=== PATIENT | male | born 1935 | race Caucasian/White ===

== ENCOUNTER 2021-09-02 10:54 | Inpatient (IN) ==
[2021-09-02] MEDS ORDERED: predniSONE 20 MG TABLET PO ONE (12:22)
[2021-09-02] MEDS ORDERED: Ipratropium/Albuterol Neb 3 ML IH ONE (12:22)
[2021-09-02 12:45] LABS: Basophils % 0.2 %; Eosinophils # 0.2 K/mcL (0.0-0.6); Eosinophils % 1.8 %; Hematocrit 46.2 % (37.5-50.1); Hemoglobin 15.1 g/dL (12.9-16.9); Immature Granulocytes % 0.5 % (0-4); Lymphocytes # 0.6 K/mcL (0.6-4.6); Lymphocytes % 4.5 %; Mean Corpuscular HGB Conc 32.7 g/dL (31.6-35.5); Mean Corpuscular Hemoglobin 30.2 pg (28.0-33.3); Mean Corpuscular Volume 92.4 fL (83.0-100.0); Mean Platelet Volume 8.6 fL (9.4-12.4); Monocytes # 0.9 K/mcL (0.0-1.3); Monocytes % 6.9 %; Neutrophils # 11.3 K/mcL (1.6-8.9); Platelet Count 511 K/mcL (140-400); Red Cell Distribution Width 12.9 % (11.5-14.5); Segmented Neutrophils % 86.1 %; White Blood Count 13.1 K/mcL (4.3-11.1)
[2021-09-02 13:03] LABS: BUN/Creatinine Ratio 27 (6-26); Blood Urea Nitrogen 29 mg/dL (8-23); Calcium 8.8 mg/dL (8.6-10.3); Carbon Dioxide 30 mEq/L (23-29); Chloride 98 mEq/L (98-107); Glucose 117 mg/dL (70-105); Osmolality,Calculated 283 (280-300); Potassium 3.6 mEq/L (3.5-5.1); Sodium 133 mEq/L (136-145); Troponin I < 0.03 ng/mL (< 0.04); eGFR For African Americans > 60 (> 60); eGFR For Non-African Americans > 60 (> 60)
[2021-09-02] MEDS ORDERED: Azithromycin 500 MG in 0.9 % Sodium Chloride 250 ML IVPB ONE (13:43)
[2021-09-02] MEDS ORDERED: cefTRIAXone 1,000 MG in 0.9 % Sodium Chloride Mini Bag 100 ML IVPB ONE (13:43)
[2021-09-02] MEDS ORDERED: Ondansetron 4 MG/2 ML VIAL IVP PRN (14:02)
[2021-09-02] MEDS ORDERED: Naloxone 0.4 MG/ML INJ IVP PRN (14:02)
[2021-09-02] MEDS ORDERED: Acetaminophen 325 MG TABLET PO PRN (14:02)
[2021-09-02] MEDS ORDERED: Ipratropium/Albuterol Neb 3 ML IH PRN (14:04)
[2021-09-02] MEDS ORDERED: Isovue-370 500 ML BOTTLE IVP ONE (14:26)
[2021-09-02] MEDS: Levalbuterol Neb 1.25 MG/3 ML IH SCH ×2 (15:51→21:20)
[2021-09-02] MEDS ORDERED: Ipratropium/Albuterol Neb 3 ML IH SCH (16:00)
[2021-09-02] MEDS: MethylPREDNISolone 40 MG/ML VIAL IVP SCH (17:40)
[2021-09-02] MEDS: Doxycycline 100 MG in 0.9 % Sodium Chloride Mini Bag 100 ML IVPB SCH (17:42)
[2021-09-02] MEDS ORDERED: Cefepime HCl 1,000 MG in 0.9 % Sodium Chloride Mini Bag 100 ML IVPB SCH (18:00)
[2021-09-02] MEDS: lisinopriL 10 MG TABLET PO SCH (20:13)
[2021-09-03] MEDS: Levalbuterol Neb 1.25 MG/3 ML IH SCH ×4 (04:29→20:04)
[2021-09-03 05:20] LABS: Hematocrit 39.6 % (37.5-50.1); Hemoglobin 12.7 g/dL (12.9-16.9); Immature Granulocytes % 0.8 % (0-4); Lymphocytes # 0.3 K/mcL (0.6-4.6); Mean Corpuscular HGB Conc 32.1 g/dL (31.6-35.5); Mean Corpuscular Hemoglobin 29.5 pg (28.0-33.3); Mean Corpuscular Volume 92.1 fL (83.0-100.0); Mean Platelet Volume 8.5 fL (9.4-12.4); Monocytes # 0.3 K/mcL (0.0-1.3); Monocytes % 2.9 %; Neutrophils # 8.5 K/mcL (1.6-8.9); Platelet Count 418 K/mcL (140-400); Red Cell Distribution Width 12.8 % (11.5-14.5); Segmented Neutrophils % 93.3 %; White Blood Count 9.1 K/mcL (4.3-11.1)
[2021-09-03 05:39] LABS: BUN/Creatinine Ratio 29 (6-26); Blood Urea Nitrogen 23 mg/dL (8-23); Calcium 8.1 mg/dL (8.6-10.3); Carbon Dioxide 25 mEq/L (23-29); Chloride 105 mEq/L (98-107); Glucose 155 mg/dL (70-105); Magnesium 2.1 mg/dL (1.6-2.6); Osmolality,Calculated 289 (280-300); Potassium 4.3 mEq/L (3.5-5.1); Sodium 136 mEq/L (136-145); eGFR For African Americans > 60 (> 60); eGFR For Non-African Americans > 60 (> 60)
[2021-09-03] MEDS: *HR* Enoxaparin 40 MG/0.4 ML SYRINGE SQ SCH (06:06)
[2021-09-03] MEDS: Doxycycline 100 MG in 0.9 % Sodium Chloride Mini Bag 100 ML IVPB SCH ×2 (06:07→16:48)
[2021-09-03] MEDS: Cefepime HCl 1,000 MG in Water for inj. (sterile) 10 ML IVP SCH ×2 (06:07→16:53)
[2021-09-03] MEDS: MethylPREDNISolone 40 MG/ML VIAL IVP SCH ×2 (06:08→16:53)
[2021-09-03] MEDS: Famotidine 20 MG TABLET PO SCH (08:34)
[2021-09-03] MEDS: Folic Acid 1 MG TABLET PO SCH (08:34)
[2021-09-03] MEDS: Vitamin E 200 UNIT (90MG) CAPSULE PO SCH (08:34)
[2021-09-03] MEDS: Pyridoxine (B-6) 50 MG TABLET PO SCH (08:34)
[2021-09-03] MEDS: Cyanocobalamin (B-12) 1,000 MCG TABLET PO SCH (08:34)
[2021-09-03] MEDS: Ascorbic Acid 500 MG TABLET PO SCH (08:35)
[2021-09-03] MEDS: Cholecalciferol (D-3) 1,000 UNIT (25MCG) TABLET PO SCH (08:35)
[2021-09-03] MEDS ORDERED: NON-FORMULARY MEDICATION 1 EACH EACH (Omega-3/Dha/Epa/Fish Oil [Fish Oil 1,000 Mg Softgel] PO SCH (09:00)
[2021-09-03] MEDS: lisinopriL 10 MG TABLET PO SCH (21:49)
[2021-09-04 02:03] LABS: INR 1.1; Prothrombin Time 12.3 Seconds (9.4-12.1)
[2021-09-04] MEDS: Levalbuterol Neb 1.25 MG/3 ML IH SCH ×4 (03:27→21:11)
[2021-09-04] MEDS: *HR* Enoxaparin 40 MG/0.4 ML SYRINGE SQ SCH (05:06)
[2021-09-04] MEDS: Doxycycline 100 MG in 0.9 % Sodium Chloride Mini Bag 100 ML IVPB SCH ×2 (05:38→18:34)
[2021-09-04] MEDS: MethylPREDNISolone 40 MG/ML VIAL IVP SCH ×2 (05:39→18:27)
[2021-09-04] MEDS: Cefepime HCl 1,000 MG in Water for inj. (sterile) 10 ML IVP SCH ×2 (05:39→18:29)
[2021-09-04] MEDS: Folic Acid 1 MG TABLET PO SCH (08:52)
[2021-09-04] MEDS: Ascorbic Acid 500 MG TABLET PO SCH (08:53)
[2021-09-04] MEDS: Cholecalciferol (D-3) 1,000 UNIT (25MCG) TABLET PO SCH (08:53)
[2021-09-04] MEDS: Famotidine 20 MG TABLET PO SCH (08:53)
[2021-09-04] MEDS: Vitamin E 200 UNIT (90MG) CAPSULE PO SCH (08:53)
[2021-09-04] MEDS: Cyanocobalamin (B-12) 1,000 MCG TABLET PO SCH (08:53)
[2021-09-04] MEDS: Pyridoxine (B-6) 50 MG TABLET PO SCH (08:53)
[2021-09-04] MEDS ORDERED: Lidocaine HCL 4 ML Topical Solution (Laryng-O-Jet Kit Sterile Pak) TP ONE (09:46)
[2021-09-04] MEDS ORDERED: *HR* Succinylcholine 200 MG/10 ML VIAL IVP ONE (09:48)
[2021-09-04] MEDS ORDERED: Lidocaine -MPF 2% 5 ML VIAL ONE (09:50)
[2021-09-04] MEDS ORDERED: *HR* FentaNYL (PF) 100 MCG/2 ML VIAL ONE (09:50)
[2021-09-04] MEDS ORDERED: Ondansetron 4 MG/2 ML VIAL ONE (09:50)
[2021-09-04] MEDS ORDERED: Acetaminophen IV 1,000 MG/100 ML BAG IVPB ONE (10:30)
[2021-09-04] MEDS ORDERED: *HR* OxyCODONE Immed Rel 5 MG TABLET PO PRN (10:30)
[2021-09-04] MEDS ORDERED: *HR* Labetalol 20 MG/4 ML SYRINGE IVP PRN (10:30)
[2021-09-04 17:00] LABS: Appearance of Body Fluid Cloudy (Clear); Volume of Body Fluid 15 mL
[2021-09-04] MEDS: lisinopriL 10 MG TABLET PO SCH (21:00)
[2021-09-05] MEDS: MethylPREDNISolone 40 MG/ML VIAL IVP SCH ×3 (00:07→18:14)
[2021-09-05 02:15] LABS: Basophils % 0.1 %; Hematocrit 39.9 % (37.5-50.1); Hemoglobin 13.3 g/dL (12.9-16.9); Immature Granulocytes % 0.7 % (0-4); Lymphocytes # 0.4 K/mcL (0.6-4.6); Lymphocytes % 2.4 %; Mean Corpuscular HGB Conc 33.3 g/dL (31.6-35.5); Mean Corpuscular Hemoglobin 30.2 pg (28.0-33.3); Mean Corpuscular Volume 90.7 fL (83.0-100.0); Mean Platelet Volume 8.7 fL (9.4-12.4); Monocytes # 0.4 K/mcL (0.0-1.3); Monocytes % 2.9 %; Neutrophils # 14.4 K/mcL (1.6-8.9); Platelet Count 462 K/mcL (140-400); Red Cell Distribution Width 12.9 % (11.5-14.5); Segmented Neutrophils % 93.9 %; White Blood Count 15.3 K/mcL (4.3-11.1)
[2021-09-05 02:33] LABS: BUN/Creatinine Ratio 35 (6-26); Blood Urea Nitrogen 36 mg/dL (8-23); Calcium 9.1 mg/dL (8.6-10.3); Carbon Dioxide 27 mEq/L (23-29); Chloride 101 mEq/L (98-107); Glucose 138 mg/dL (70-105); Osmolality,Calculated 289 (280-300); Potassium 5.1 mEq/L (3.5-5.1); Sodium 134 mEq/L (136-145); eGFR For African Americans > 60 (> 60); eGFR For Non-African Americans > 60 (> 60)
[2021-09-05] MEDS: Levalbuterol Neb 1.25 MG/3 ML IH SCH ×4 (04:18→22:06)
[2021-09-05] MEDS: Doxycycline 100 MG in 0.9 % Sodium Chloride Mini Bag 100 ML IVPB SCH ×2 (05:18→18:21)
[2021-09-05] MEDS: *HR* Enoxaparin 40 MG/0.4 ML SYRINGE SQ SCH (05:19)
[2021-09-05] MEDS: Cefepime HCl 1,000 MG in Water for inj. (sterile) 10 ML IVP SCH ×2 (05:19→18:21)
[2021-09-05] MEDS: Pyridoxine (B-6) 50 MG TABLET PO SCH (08:26)
[2021-09-05] MEDS: Cholecalciferol (D-3) 1,000 UNIT (25MCG) TABLET PO SCH (08:26)
[2021-09-05] MEDS: Folic Acid 1 MG TABLET PO SCH (08:26)
[2021-09-05] MEDS: Vitamin E 200 UNIT (90MG) CAPSULE PO SCH (08:26)
[2021-09-05] MEDS: Famotidine 20 MG TABLET PO SCH (08:26)
[2021-09-05] MEDS: Ascorbic Acid 500 MG TABLET PO SCH (08:26)
[2021-09-05] MEDS: Cyanocobalamin (B-12) 1,000 MCG TABLET PO SCH (08:26)
[2021-09-05] MEDS: lisinopriL 10 MG TABLET PO SCH (20:56)
[2021-09-06] MEDS: Levalbuterol Neb 1.25 MG/3 ML IH SCH ×4 (03:01→20:35)
[2021-09-06] MEDS: *HR* Enoxaparin 40 MG/0.4 ML SYRINGE SQ SCH (06:03)
[2021-09-06] MEDS: Cefepime HCl 1,000 MG in Water for inj. (sterile) 10 ML IVP SCH ×2 (06:04→16:56)
[2021-09-06] MEDS: Doxycycline 100 MG in 0.9 % Sodium Chloride Mini Bag 100 ML IVPB SCH ×2 (06:06→16:56)
[2021-09-06] MEDS: Cholecalciferol (D-3) 1,000 UNIT (25MCG) TABLET PO SCH (07:16)
[2021-09-06] MEDS: Ascorbic Acid 500 MG TABLET PO SCH (07:16)
[2021-09-06] MEDS: Folic Acid 1 MG TABLET PO SCH (07:16)
[2021-09-06] MEDS: Pyridoxine (B-6) 50 MG TABLET PO SCH (07:16)
[2021-09-06] MEDS: Vitamin E 200 UNIT (90MG) CAPSULE PO SCH (07:16)
[2021-09-06] MEDS: Famotidine 20 MG TABLET PO SCH (07:16)
[2021-09-06] MEDS: Cyanocobalamin (B-12) 1,000 MCG TABLET PO SCH (07:16)
[2021-09-06] MEDS: predniSONE 20 MG TABLET PO SCH (10:37)
[2021-09-06] MEDS: lisinopriL 10 MG TABLET PO SCH (20:01)
[2021-09-07] MEDS: Levalbuterol Neb 1.25 MG/3 ML IH SCH ×2 (03:49→07:32)
[2021-09-07] MEDS: Cefepime HCl 1,000 MG in Water for inj. (sterile) 10 ML IVP SCH (05:57)
[2021-09-07] MEDS: Doxycycline 100 MG in 0.9 % Sodium Chloride Mini Bag 100 ML IVPB SCH (05:57)
[2021-09-07] MEDS: *HR* Enoxaparin 40 MG/0.4 ML SYRINGE SQ SCH (05:57)
[2021-09-07] MEDS: Cholecalciferol (D-3) 1,000 UNIT (25MCG) TABLET PO SCH (08:24)
[2021-09-07] MEDS: Cyanocobalamin (B-12) 1,000 MCG TABLET PO SCH (08:25)
[2021-09-07] MEDS: Famotidine 20 MG TABLET PO SCH (08:25)
[2021-09-07] MEDS: predniSONE 20 MG TABLET PO SCH (08:25)
[2021-09-07] MEDS: Pyridoxine (B-6) 50 MG TABLET PO SCH (08:25)
[2021-09-07] MEDS: Folic Acid 1 MG TABLET PO SCH (08:26)
[2021-09-07] MEDS: Vitamin E 200 UNIT (90MG) CAPSULE PO SCH (08:28)
[2021-09-07] MEDS: Ascorbic Acid 500 MG TABLET PO SCH (08:28)
[2021-09-07 10:58] VITALS: BP 154/81; PULSE 65; TEMP 98; O2SAT 97
== END 2021-09-07 11:37 | disposition home or self-care (01) | DRG 193 ==
LOC: 3BNU 10:54 → EMEROOARM 10:54 → SUATTDRO 15:06 → 3BNU 16:06
PROVIDERS: ADMIT Internal Medicine; ATTEND Internal Medicine

== ENCOUNTER 2021-09-23 19:08 | Inpatient (IN) ==
[2021-09-23] MEDS ORDERED: levoFLOXacin 750 MG/150 ML 750 MG/150 ML BAG IVPB ONE (19:59)
[2021-09-23] MEDS ORDERED: Acetaminophen 325 MG TABLET PO ONE (19:59)
[2021-09-23] MEDS ORDERED: 0.9 % Sodium Chloride 1,000 ML IVC ONE (19:59)
[2021-09-23 20:23] LABS: Basophils % 0.2 %; Eosinophils # 0.3 K/mcL (0.0-0.6); Hematocrit 42.1 % (37.5-50.1); Hemoglobin 13.6 g/dL (12.9-16.9); Immature Granulocytes % 0.5 % (0-4); Lymphocytes # 0.6 K/mcL (0.6-4.6); Lymphocytes % 4.4 %; Mean Corpuscular HGB Conc 32.3 g/dL (31.6-35.5); Mean Corpuscular Hemoglobin 29.5 pg (28.0-33.3); Mean Corpuscular Volume 91.3 fL (83.0-100.0); Monocytes % 7.7 %; Neutrophils # 10.9 K/mcL (1.6-8.9); Platelet Count 479 K/mcL (140-400); Red Blood Count 4.61 M/mcL (4.19-5.50); Red Cell Distribution Width 12.7 % (11.5-14.5); Segmented Neutrophils % 85.2 %; White Blood Count 12.8 K/mcL (4.3-11.1)
[2021-09-23 20:42] LABS: Alanine Aminotransferase 19 Units/L (7-52); Albumin 3.4 g/dL (3.5-5.7); Albumin/Globulin Ratio 0.8 (1.1-2.2); Alkaline Phosphatase 85 Units/L (34-104); Aspartate Amino Transferase 19 Units/L (13-39); BUN/Creatinine Ratio 22 (6-26); Bilirubin,Direct 0.2 mg/dL (0.0-0.2); Bilirubin,Indirect 0.3 mg/dL (0.0-1.0); Bilirubin,Total 0.5 mg/dL (0.3-1.0); Blood Urea Nitrogen 23 mg/dL (8-23); Calcium 9.2 mg/dL (8.6-10.3); Carbon Dioxide 22 mEq/L (23-29); Chloride 100 mEq/L (98-107); Globulin 4.3 g/dL (2.4-3.5); Glucose 106 mg/dL (70-105); Osmolality,Calculated 280 (280-300); Potassium 4.6 mEq/L (3.5-5.1); Sodium 133 mEq/L (136-145); Total Protein 7.7 g/dL (6.4-8.9); Troponin I 0.03 ng/mL (< 0.04); eGFR For African Americans > 60 (> 60); eGFR For Non-African Americans > 60 (> 60)
[2021-09-23 20:58] LABS: Bilirubin,Urine Negative (Negative); Blood,Urine Negative (Negative); Clarity,Urine Clear (Clear); Color,Urine Yellow (Yellow); Glucose,Urine (UA) Normal (Normal); Ketones,Urine 10 mg/dL (Negative); Leukocyte Esterase,Urine Negative (Negative); Mucus,Urine Few per lpf (None-Few); Nitrite,Urine Negative (Negative); PH,Urine 5.5 pH Units (5.0-8.0); Protein,Urine 50 mg/dL (Neg-Trace); Specific Gravity,Urine 1.029 (1.010-1.025); Urobilinogen,Urine Normal (Normal); WBC,Urine 0-3 per hpf (0-3)
[2021-09-23] MEDS ORDERED: Albuterol 2.5 MG/3 ML NEBULIZER IH ONE (22:36)
[2021-09-23] MEDS ORDERED: predniSONE 20 MG TABLET PO ONE (23:31)
[2021-09-24 00:33] LABS: Adenovirus Not Detected (Not Detect); Bordetella Pertussis Not Detected (Not Detect); Chlamydophila pneumoniae Not Detected (Not Detect); Coronavirus 229E Not Detected (Not Detect); Coronavirus HKU1 Not Detected (Not Detect); Coronavirus NL63 Not Detected (Not Detect); Coronavirus OC43 Not Detected (Not Detect); Human Metapneumovirus Not Detected (Not Detect); Human Rhinovirus/Enterovirus Not Detected (Not Detect); Influenza A Subtype 2009 H1 Not Detected (Not Detect); Influenza B Not Detected (Not Detect); Mycoplasma pneumoniae Not Detected (Not Detect); Parainfluenza Virus 1 Not Detected (Not Detect); Parainfluenza Virus 2 Not Detected (Not Detect); Parainfluenza Virus 3 Not Detected (Not Detect); Parainfluenza Virus 4 Not Detected (Not Detect); Respiratory Syncytial Virus Not Detected (Not Detect); SARS-CoV-2 Not Detected (Not Detect)
[2021-09-24] MEDS ORDERED: Ondansetron 4 MG/2 ML VIAL IVP PRN (00:48)
[2021-09-24] MEDS ORDERED: Naloxone 0.4 MG/ML INJ IVP PRN (00:48)
[2021-09-24] MEDS ORDERED: Ipratropium/Albuterol Neb 3 ML IH PRN (02:17)
[2021-09-24 03:05] LABS: Basophils % 0.3 %; Eosinophils # 0.2 K/mcL (0.0-0.6); Eosinophils % 1.5 %; Hemoglobin 11.6 g/dL (12.9-16.9); Immature Granulocytes % 0.5 % (0-4); Lymphocytes # 0.4 K/mcL (0.6-4.6); Lymphocytes % 3.4 %; Mean Corpuscular HGB Conc 32.2 g/dL (31.6-35.5); Mean Corpuscular Hemoglobin 29.5 pg (28.0-33.3); Mean Corpuscular Volume 91.6 fL (83.0-100.0); Mean Platelet Volume 8.8 fL (9.4-12.4); Monocytes # 0.7 K/mcL (0.0-1.3); Monocytes % 6.3 %; Neutrophils # 9.4 K/mcL (1.6-8.9); Platelet Count 375 K/mcL (140-400); Red Blood Count 3.93 M/mcL (4.19-5.50); Red Cell Distribution Width 12.6 % (11.5-14.5); White Blood Count 10.7 K/mcL (4.3-11.1)
[2021-09-24 03:22] LABS: BUN/Creatinine Ratio 22 (6-26); Blood Urea Nitrogen 22 mg/dL (8-23); Calcium 8.2 mg/dL (8.6-10.3); Carbon Dioxide 21 mEq/L (23-29); Chloride 105 mEq/L (98-107); Glucose 125 mg/dL (70-105); Magnesium 1.8 mg/dL (1.6-2.6); Osmolality,Calculated 283 (280-300); Potassium 4.2 mEq/L (3.5-5.1); Sodium 134 mEq/L (136-145); eGFR For African Americans > 60 (> 60); eGFR For Non-African Americans > 60 (> 60)
[2021-09-24] MEDS: MethylPREDNISolone 40 MG/ML VIAL IVP SCH ×2 (05:17→17:37)
[2021-09-24] MEDS: Budesonide/Formoterol 80/4.5 1 PUFF INH IH SCH ×2 (08:01→21:11)
[2021-09-24] MEDS: *HR* Enoxaparin 40 MG/0.4 ML SYRINGE SQ SCH ×2 (08:28→08:31)
[2021-09-24] MEDS: Cyanocobalamin (B-12) 1,000 MCG TABLET PO SCH (08:31)
[2021-09-24] MEDS: Cholecalciferol (D-3) 1,000 UNIT (25MCG) TABLET PO SCH (08:31)
[2021-09-24] MEDS: Folic Acid 1 MG TABLET PO SCH (08:31)
[2021-09-24] MEDS: Ipratropium/Albuterol Neb 3 ML IH SCH ×3 (14:13→21:11)
[2021-09-24] MEDS ORDERED: Patient Taking Own Medication 1 EACH IH PRN (15:12)
[2021-09-24] MEDS: Cefepime HCl 2,000 MG in 0.9 % Sodium Chloride Mini Bag 100 ML IVPB SCH (17:36)
[2021-09-24] MEDS: lisinopriL 10 MG TABLET PO SCH (20:08)
[2021-09-25] MEDS: Ipratropium/Albuterol Neb 3 ML IH SCH ×4 (03:49→20:18)
[2021-09-25 04:31] LABS: Basophils % 0.1 %; Hematocrit 35.1 % (37.5-50.1); Hemoglobin 11.4 g/dL (12.9-16.9); Immature Granulocytes % 0.6 % (0-4); Lymphocytes # 0.6 K/mcL (0.6-4.6); Lymphocytes % 3.9 %; Mean Corpuscular HGB Conc 32.5 g/dL (31.6-35.5); Mean Corpuscular Hemoglobin 29.3 pg (28.0-33.3); Mean Corpuscular Volume 90.2 fL (83.0-100.0); Monocytes # 0.8 K/mcL (0.0-1.3); Monocytes % 5.1 %; Neutrophils # 13.3 K/mcL (1.6-8.9); Platelet Count 468 K/mcL (140-400); Red Blood Count 3.89 M/mcL (4.19-5.50); Red Cell Distribution Width 12.6 % (11.5-14.5); Segmented Neutrophils % 90.3 %; White Blood Count 14.7 K/mcL (4.3-11.1)
[2021-09-25 04:39] LABS: BUN/Creatinine Ratio 29 (6-26); Blood Urea Nitrogen 25 mg/dL (8-23); Calcium 8.6 mg/dL (8.6-10.3); Carbon Dioxide 22 mEq/L (23-29); Chloride 106 mEq/L (98-107); Glucose 165 mg/dL (70-105); Osmolality,Calculated 288 (280-300); Potassium 4.4 mEq/L (3.5-5.1); Sodium 135 mEq/L (136-145); eGFR For African Americans > 60 (> 60); eGFR For Non-African Americans > 60 (> 60)
[2021-09-25] MEDS: Cefepime HCl 2,000 MG in 0.9 % Sodium Chloride Mini Bag 100 ML IVPB SCH ×2 (06:18→18:13)
[2021-09-25] MEDS: MethylPREDNISolone 40 MG/ML VIAL IVP SCH ×2 (06:18→18:14)
[2021-09-25] MEDS: Cyanocobalamin (B-12) 1,000 MCG TABLET PO SCH (08:41)
[2021-09-25] MEDS: Cholecalciferol (D-3) 1,000 UNIT (25MCG) TABLET PO SCH (08:41)
[2021-09-25] MEDS: Aspirin 325 MG TABLET PO SCH (08:41)
[2021-09-25] MEDS: Famotidine 20 MG TABLET PO SCH (08:41)
[2021-09-25] MEDS: Pyridoxine (B-6) 50 MG TABLET PO SCH (08:41)
[2021-09-25] MEDS: Folic Acid 1 MG TABLET PO SCH (08:42)
[2021-09-25] MEDS: *HR* Enoxaparin 40 MG/0.4 ML SYRINGE SQ SCH (08:42)
[2021-09-25] MEDS: Budesonide/Formoterol 80/4.5 1 PUFF INH IH SCH ×2 (10:20→20:18)
[2021-09-25] MEDS: lisinopriL 10 MG TABLET PO SCH (20:16)
[2021-09-25] MEDS ORDERED: Chloraseptic Spray 177 ML BOTTLE MM PRN (22:20)
[2021-09-26] MEDS: Ipratropium/Albuterol Neb 3 ML IH SCH ×4 (03:53→20:47)
[2021-09-26 05:09] LABS: Basophils % 0.1 %; Hematocrit 39.1 % (37.5-50.1); Hemoglobin 12.9 g/dL (12.9-16.9); Immature Granulocytes % 0.9 % (0-4); Lymphocytes # 0.5 K/mcL (0.6-4.6); Lymphocytes % 3.2 %; Mean Corpuscular Hemoglobin 30.7 pg (28.0-33.3); Mean Corpuscular Volume 93.1 fL (83.0-100.0); Monocytes # 0.9 K/mcL (0.0-1.3); Monocytes % 5.3 %; Neutrophils # 15.4 K/mcL (1.6-8.9); Platelet Count 536 K/mcL (140-400); Red Cell Distribution Width 12.9 % (11.5-14.5); Segmented Neutrophils % 90.5 %
[2021-09-26 05:15] LABS: BUN/Creatinine Ratio 28 (6-26); Blood Urea Nitrogen 27 mg/dL (8-23); Calcium 8.8 mg/dL (8.6-10.3); Carbon Dioxide 20 mEq/L (23-29); Chloride 105 mEq/L (98-107); Glucose 116 mg/dL (70-105); Osmolality,Calculated 282 (280-300); Potassium 4.7 mEq/L (3.5-5.1); Sodium 133 mEq/L (136-145); eGFR For African Americans > 60 (> 60); eGFR For Non-African Americans > 60 (> 60)
[2021-09-26] MEDS: Cefepime HCl 2,000 MG in 0.9 % Sodium Chloride Mini Bag 100 ML IVPB SCH ×2 (07:00→17:13)
[2021-09-26] MEDS: MethylPREDNISolone 40 MG/ML VIAL IVP SCH (07:00)
[2021-09-26] MEDS: Aspirin 325 MG TABLET PO SCH (07:33)
[2021-09-26] MEDS: Folic Acid 1 MG TABLET PO SCH (07:33)
[2021-09-26] MEDS: Cyanocobalamin (B-12) 1,000 MCG TABLET PO SCH (07:33)
[2021-09-26] MEDS: *HR* Enoxaparin 40 MG/0.4 ML SYRINGE SQ SCH (07:33)
[2021-09-26] MEDS: Cholecalciferol (D-3) 1,000 UNIT (25MCG) TABLET PO SCH (07:33)
[2021-09-26] MEDS: Pyridoxine (B-6) 50 MG TABLET PO SCH (07:33)
[2021-09-26] MEDS: Famotidine 20 MG TABLET PO SCH (07:33)
[2021-09-26] MEDS: Budesonide/Formoterol 80/4.5 1 PUFF INH IH SCH ×2 (09:40→20:48)
[2021-09-26] MEDS: lisinopriL 10 MG TABLET PO SCH (19:36)
[2021-09-27] MEDS: Ipratropium/Albuterol Neb 3 ML IH SCH ×3 (04:20→08:15)
[2021-09-27] MEDS: Cefepime HCl 2,000 MG in 0.9 % Sodium Chloride Mini Bag 100 ML IVPB SCH (05:17)
[2021-09-27 05:31] VITALS: PULSE 102
[2021-09-27 06:03] LABS: Basophils # 0.1 K/mcL (0.0-0.2); Basophils % 0.5 %; Eosinophils # 0.1 K/mcL (0.0-0.6); Eosinophils % 0.8 %; Hematocrit 38.1 % (37.5-50.1); Hemoglobin 12.2 g/dL (12.9-16.9); Immature Granulocytes % 1.4 % (0-4); Lymphocytes # 0.8 K/mcL (0.6-4.6); Lymphocytes % 6.5 %; Mean Corpuscular Hemoglobin 29.8 pg (28.0-33.3); Mean Corpuscular Volume 93.2 fL (83.0-100.0); Mean Platelet Volume 9.1 fL (9.4-12.4); Monocytes # 1.3 K/mcL (0.0-1.3); Monocytes % 10.7 %; Platelet Count 543 K/mcL (140-400); Red Blood Count 4.09 M/mcL (4.19-5.50); Red Cell Distribution Width 12.9 % (11.5-14.5); Segmented Neutrophils % 80.1 %; White Blood Count 12.5 K/mcL (4.3-11.1)
[2021-09-27 06:22] LABS: BUN/Creatinine Ratio 28 (6-26); Blood Urea Nitrogen 29 mg/dL (8-23); Calcium 8.7 mg/dL (8.6-10.3); Carbon Dioxide 25 mEq/L (23-29); Chloride 104 mEq/L (98-107); Glucose 81 mg/dL (70-105); Osmolality,Calculated 283 (280-300); Potassium 4.4 mEq/L (3.5-5.1); Sodium 134 mEq/L (136-145); eGFR For African Americans > 60 (> 60); eGFR For Non-African Americans > 60 (> 60)
[2021-09-27 06:53] VITALS: BP 112/75; TEMP 98.2
[2021-09-27] MEDS: Aspirin 325 MG TABLET PO SCH (07:59)
[2021-09-27] MEDS: Cyanocobalamin (B-12) 1,000 MCG TABLET PO SCH (07:59)
[2021-09-27] MEDS: *HR* Enoxaparin 40 MG/0.4 ML SYRINGE SQ SCH (07:59)
[2021-09-27] MEDS: Famotidine 20 MG TABLET PO SCH (07:59)
[2021-09-27] MEDS: Folic Acid 1 MG TABLET PO SCH (07:59)
[2021-09-27] MEDS: Cholecalciferol (D-3) 1,000 UNIT (25MCG) TABLET PO SCH (07:59)
[2021-09-27] MEDS: Pyridoxine (B-6) 50 MG TABLET PO SCH (07:59)
[2021-09-27] MEDS: Budesonide/Formoterol 80/4.5 1 PUFF INH IH SCH (08:15)
[2021-09-27 08:16] VITALS: O2SAT 98
[2021-09-27] MEDS ORDERED: predniSONE 20 MG TABLET PO SCH (09:00)
== END 2021-09-27 11:10 | disposition home or self-care (01) | DRG 190 ==
LOC: EMEROOARM 19:08 → 3ANU 19:08 → SUATTDRO 09-24 00:46 → 3ANU 09-24 01:01
PROVIDERS: ADMIT Internal Medicine; ATTEND Family Medicine

== ENCOUNTER 2021-11-14 17:41 | Inpatient (IN) ==
[2021-11-14] MEDS ORDERED: methylPREDNISolone 125 MG/2 ML VIAL IVP ONE (18:06)
[2021-11-14] MEDS ORDERED: Ipratropium/Albuterol Neb 3 ML IH ONE (18:06)
[2021-11-14] MEDS ORDERED: 0.9 % Sodium Chloride 1,000 ML IVC ONE (18:06)
[2021-11-14 18:27] LABS: Basophils # 0.1 K/mcL (0.0-0.2); Basophils % 0.2 %; Eosinophils # 0.2 K/mcL (0.0-0.6); Eosinophils % 0.7 %; Hematocrit 39.3 % (37.5-50.1); Hemoglobin 12.5 g/dL (12.9-16.9); Immature Granulocytes % 0.6 % (0-4); Lymphocytes # 0.5 K/mcL (0.6-4.6); Lymphocytes % 2.4 %; Mean Corpuscular HGB Conc 31.8 g/dL (31.6-35.5); Mean Corpuscular Hemoglobin 28.8 pg (28.0-33.3); Mean Corpuscular Volume 90.6 fL (83.0-100.0); Mean Platelet Volume 8.9 fL (9.4-12.4); Monocytes # 1.8 K/mcL (0.0-1.3); Monocytes % 8.4 %; Neutrophils # 18.9 K/mcL (1.6-8.9); Platelet Count 474 K/mcL (140-400); Red Blood Count 4.34 M/mcL (4.19-5.50); Red Cell Distribution Width 13.9 % (11.5-14.5); Segmented Neutrophils % 87.7 %; White Blood Count 21.5 K/mcL (4.3-11.1)
[2021-11-14 18:43] LABS: BUN/Creatinine Ratio 15 (6-26); Blood Urea Nitrogen 15 mg/dL (8-23); Calcium 9.3 mg/dL (8.6-10.3); Carbon Dioxide 23 mEq/L (23-29); Chloride 96 mEq/L (98-107); Glucose 102 mg/dL (70-105); Osmolality,Calculated 271 (280-300); Potassium 4.6 mEq/L (3.5-5.1); Sodium 130 mEq/L (136-145); eGFR For African Americans > 60 (> 60); eGFR For Non-African Americans > 60 (> 60)
[2021-11-14 18:44] LABS: Troponin I < 0.03 ng/mL (< 0.04)
[2021-11-14 19:27] LABS: INR 1.4; Prothrombin Time 15.3 Seconds (9.4-12.1)
[2021-11-14 19:29] LABS: Activated Partial Thrombo Time 32.9 Seconds (26.0-36.0)
[2021-11-14 19:34] LABS: Albumin 3.2 g/dL (3.5-5.7); Albumin/Globulin Ratio 0.8 (1.1-2.2); Bilirubin,Direct 0.1 mg/dL (0.0-0.2); Bilirubin,Indirect 0.5 mg/dL (0.0-1.0); Bilirubin,Total 0.6 mg/dL (0.3-1.0); Total Protein 7.2 g/dL (6.4-8.9)
[2021-11-14 21:32] LABS: Adenovirus Not Detected (Not Detect); Bordetella Pertussis Not Detected (Not Detect); Chlamydophila pneumoniae Not Detected (Not Detect); Coronavirus 229E Not Detected (Not Detect); Coronavirus HKU1 Not Detected (Not Detect); Coronavirus NL63 Not Detected (Not Detect); Coronavirus OC43 Not Detected (Not Detect); Human Metapneumovirus Not Detected (Not Detect); Human Rhinovirus/Enterovirus Not Detected (Not Detect); Influenza A Subtype 2009 H1 Not Detected (Not Detect); Influenza B Not Detected (Not Detect); Mycoplasma pneumoniae Not Detected (Not Detect); Parainfluenza Virus 1 Not Detected (Not Detect); Parainfluenza Virus 2 Not Detected (Not Detect); Parainfluenza Virus 3 Not Detected (Not Detect); Parainfluenza Virus 4 Not Detected (Not Detect); Respiratory Syncytial Virus Not Detected (Not Detect); SARS-CoV-2 Not Detected (Not Detect)
[2021-11-14] MEDS ORDERED: Naloxone 0.4 MG/ML INJ IVP PRN (22:03)
[2021-11-14] MEDS ORDERED: Ondansetron 4 MG/2 ML VIAL IVP PRN (22:03)
[2021-11-14] MEDS ORDERED: Melatonin 3 MG TABLET PO PRN (22:03)
[2021-11-14] MEDS ORDERED: Acetaminophen 325 MG TABLET PO PRN (22:03)
[2021-11-15] MEDS: methylPREDNISolone 125 MG/2 ML VIAL IVP SCH ×4 (00:01→23:11)
[2021-11-15] MEDS ORDERED: lisinopriL 20 MG TABLET PO SCH (02:00)
[2021-11-15] MEDS: Ipratropium/Albuterol Neb 3 ML IH SCH ×7 (02:33→23:55)
[2021-11-15 03:12] LABS: Basophils % 0.1 %; Hematocrit 34.8 % (37.5-50.1); Hemoglobin 11.5 g/dL (12.9-16.9); Immature Granulocytes % 0.4 % (0-4); Lymphocytes # 0.3 K/mcL (0.6-4.6); Lymphocytes % 1.5 %; Mean Corpuscular Hemoglobin 29.8 pg (28.0-33.3); Mean Corpuscular Volume 90.2 fL (83.0-100.0); Mean Platelet Volume 8.9 fL (9.4-12.4); Monocytes # 0.3 K/mcL (0.0-1.3); Monocytes % 1.5 %; Neutrophils # 16.1 K/mcL (1.6-8.9); Platelet Count 427 K/mcL (140-400); Red Blood Count 3.86 M/mcL (4.19-5.50); Segmented Neutrophils % 96.5 %; White Blood Count 16.7 K/mcL (4.3-11.1)
[2021-11-15] MEDS ORDERED: Famotidine 20 MG TABLET PO ONE (03:13)
[2021-11-15 03:25] LABS: INR 1.5; Prothrombin Time 16.2 Seconds (9.4-12.1)
[2021-11-15 03:32] LABS: Alanine Aminotransferase 10 Units/L (7-52); Albumin 3.1 g/dL (3.5-5.7); Albumin/Globulin Ratio 0.8 (1.1-2.2); Alkaline Phosphatase 81 Units/L (34-104); Aspartate Amino Transferase 11 Units/L (13-39); BUN/Creatinine Ratio 22 (6-26); Bilirubin,Total 0.3 mg/dL (0.3-1.0); Blood Urea Nitrogen 21 mg/dL (8-23); Calcium 8.8 mg/dL (8.6-10.3); Carbon Dioxide 21 mEq/L (23-29); Chloride 100 mEq/L (98-107); Glucose 306 mg/dL (70-105); Magnesium 1.8 mg/dL (1.6-2.6); Osmolality,Calculated 283 (280-300); Phosphorous 2.4 mg/dL (2.7-4.5); Potassium 4.5 mEq/L (3.5-5.1); Sodium 129 mEq/L (136-145); Total Protein 7.1 g/dL (6.4-8.9); eGFR For African Americans > 60 (> 60); eGFR For Non-African Americans > 60 (> 60)
[2021-11-15] MEDS ORDERED: Budesonide/Formoterol 160/4.5 1 PUFF INH IH ONE (04:20)
[2021-11-15] MEDS: *HR* Enoxaparin 40 MG/0.4 ML SYRINGE SQ SCH (06:07)
[2021-11-15 07:28] LABS: Bilirubin,Urine Negative (Negative); Blood,Urine Negative (Negative); Clarity,Urine Clear (Clear); Color,Urine Light-Yellow (Yellow); Glucose,Urine (UA) >=1000 mg/dL (Normal); Ketones,Urine Trace mg/dL (Negative); Leukocyte Esterase,Urine Negative (Negative); Nitrite,Urine Negative (Negative); Protein,Urine Trace mg/dL (Neg-Trace); RBC,Urine 0-3 per hpf (0-3); Specific Gravity,Urine 1.012 (1.010-1.025); Urobilinogen,Urine Normal (Normal); WBC,Urine 0-3 per hpf (0-3)
[2021-11-15] MEDS: Chlorhexidine Rinse 15 ML MOUTHWASH MM SCH ×2 (07:47→19:30)
[2021-11-15] MEDS: Lactobacillus 1 EACH CAP.SPRINK PO SCH ×2 (07:48→19:30)
[2021-11-15] MEDS: Azithromycin 250 MG TABLET PO SCH (07:48)
[2021-11-15] MEDS: Multivit/Ca/Min/Fe/FA 1 TAB TABLET PO SCH (07:49)
[2021-11-15] MEDS: Insulin LISPRO 300 UNITS/3 ML VIAL SUBQ SCH ×3 (07:54→16:34)
[2021-11-15] MEDS: Budesonide/Formoterol 160/4.5 1 PUFF INH IH SCH ×2 (07:56→19:46)
[2021-11-15] MEDS ORDERED: cefTRIAXone 1,000 MG in 0.9 % Sodium Chloride Mini Bag 100 ML IVPB SCH (09:00)
[2021-11-15 11:11] LABS: % Iron Saturation 5 % (20-55); Iron 12 mcg/dL (65-175); Transferrin 177 mg/dL (203-362)
[2021-11-15 11:14] LABS: C-Reactive Protein 227 mg/L (Less than 10)
[2021-11-15 11:29] LABS: Ferritin 173 ng/mL (20-250)
[2021-11-15 11:34] LABS: Folate 9.6 ng/mL (3.0-16.0)
[2021-11-15 14:21] LABS: Estimated Average Glucose 128 mg/dl; Hemoglobin A1C 6.1 %
[2021-11-15] MEDS ORDERED: MetroNIDAZOLE 500 MG/100 ML 500 MG/100 ML BAG IVPB SCH (16:00)
[2021-11-15] MEDS ORDERED: Cefepime HCl 1,000 MG in 0.9 % Sodium Chloride Mini Bag 100 ML IVP SCH (16:00)
[2021-11-15] MEDS: Cefepime HCl 1,000 MG in 0.9 % Sodium Chloride Mini Bag 100 ML IVPB SCH ×2 (16:33→23:13)
[2021-11-16] MEDS: MetroNIDAZOLE 500 MG/100 ML 500 MG/100 ML BAG IVPB SCH ×3 (00:10→16:17)
[2021-11-16 02:15] LABS: Basophils % 0.1 %; Mean Platelet Volume 8.9 fL (9.4-12.4)
[2021-11-16 02:18] LABS: Hematocrit 31.4 % (37.5-50.1); Hemoglobin 10.2 g/dL (12.9-16.9); Immature Granulocytes % 1.1 % (0-4); Lymphocytes % 1.2 %; Mean Corpuscular HGB Conc 32.5 g/dL (31.6-35.5); Mean Corpuscular Hemoglobin 29.1 pg (28.0-33.3); Mean Corpuscular Volume 89.5 fL (83.0-100.0); Monocytes # 0.5 K/mcL (0.0-1.3); Monocytes % 1.7 %; Neutrophils # 28.2 K/mcL (1.6-8.9); Platelet Count 463 K/mcL (140-400); Red Blood Count 3.51 M/mcL (4.19-5.50); Red Cell Distribution Width 14.2 % (11.5-14.5); Segmented Neutrophils % 95.9 %; White Blood Count 29.4 K/mcL (4.3-11.1)
[2021-11-16 02:30] LABS: Lymphocytes # 0.4 K/mcL (0.6-4.6)
[2021-11-16 02:33] LABS: BUN/Creatinine Ratio 27 (6-26); Blood Urea Nitrogen 27 mg/dL (8-23); Calcium 8.8 mg/dL (8.6-10.3); Carbon Dioxide 23 mEq/L (23-29); Chloride 102 mEq/L (98-107); Glucose 191 mg/dL (70-105); Magnesium 1.8 mg/dL (1.6-2.6); Osmolality,Calculated 282 (280-300); Phosphorous 2.6 mg/dL (2.7-4.5); Sodium 131 mEq/L (136-145); eGFR For African Americans > 60 (> 60); eGFR For Non-African Americans > 60 (> 60)
[2021-11-16] MEDS: Ipratropium/Albuterol Neb 3 ML IH SCH ×6 (02:35→23:31)
[2021-11-16] MEDS: *HR* Enoxaparin 40 MG/0.4 ML SYRINGE SQ SCH (05:18)
[2021-11-16] MEDS: Budesonide/Formoterol 160/4.5 1 PUFF INH IH SCH ×2 (07:37→20:08)
[2021-11-16] MEDS: Cefepime HCl 1,000 MG in 0.9 % Sodium Chloride Mini Bag 100 ML IVPB SCH ×2 (10:18→17:56)
[2021-11-16] MEDS: Multivit/Ca/Min/Fe/FA 1 TAB TABLET PO SCH (10:19)
[2021-11-16] MEDS: Chlorhexidine Rinse 15 ML MOUTHWASH MM SCH ×2 (10:19→21:34)
[2021-11-16] MEDS: Azithromycin 250 MG TABLET PO SCH (10:19)
[2021-11-16] MEDS: Lactobacillus 1 EACH CAP.SPRINK PO SCH ×2 (10:19→21:34)
[2021-11-16] MEDS: Insulin LISPRO 300 UNITS/3 ML VIAL SUBQ SCH ×3 (10:27→17:35)
[2021-11-16] MEDS: MethylPREDNISolone 40 MG/ML VIAL IVP SCH (12:31)
[2021-11-16] MEDS: lisinopriL 10 MG TABLET PO SCH (21:34)
[2021-11-16] MEDS: Cefepime HCl 2,000 MG in 0.9 % Sodium Chloride Mini Bag 100 ML IVPB SCH (21:35)
[2021-11-17] MEDS: MethylPREDNISolone 40 MG/ML VIAL IVP SCH ×2 (00:42→14:59)
[2021-11-17] MEDS: MetroNIDAZOLE 500 MG/100 ML 500 MG/100 ML BAG IVPB SCH ×2 (00:42→10:14)
[2021-11-17] MEDS: Ipratropium/Albuterol Neb 3 ML IH SCH ×6 (03:49→23:25)
[2021-11-17 05:19] LABS: Basophils % 0.1 %; Monocytes % 2.3 %; Red Cell Distribution Width 14.2 % (11.5-14.5); Segmented Neutrophils % 95.4 %
[2021-11-17 05:21] LABS: Hematocrit 33.3 % (37.5-50.1); Hemoglobin 10.4 g/dL (12.9-16.9); Immature Granulocytes % 0.8 % (0-4); Lymphocytes # 0.4 K/mcL (0.6-4.6); Lymphocytes % 1.4 %; Mean Corpuscular HGB Conc 31.2 g/dL (31.6-35.5); Mean Corpuscular Hemoglobin 28.3 pg (28.0-33.3); Mean Corpuscular Volume 90.5 fL (83.0-100.0); Monocytes # 0.6 K/mcL (0.0-1.3); Neutrophils # 24.3 K/mcL (1.6-8.9); Platelet Count 510 K/mcL (140-400); Red Blood Count 3.68 M/mcL (4.19-5.50); White Blood Count 25.5 K/mcL (4.3-11.1)
[2021-11-17 05:45] LABS: BUN/Creatinine Ratio 31 (6-26); Blood Urea Nitrogen 30 mg/dL (8-23); Calcium 8.9 mg/dL (8.6-10.3); Carbon Dioxide 24 mEq/L (23-29); Chloride 103 mEq/L (98-107); Glucose 121 mg/dL (70-105); Magnesium 1.9 mg/dL (1.6-2.6); Osmolality,Calculated 285 (280-300); Phosphorous 3.1 mg/dL (2.7-4.5); Potassium 4.5 mEq/L (3.5-5.1); Sodium 134 mEq/L (136-145); eGFR For African Americans > 60 (> 60); eGFR For Non-African Americans > 60 (> 60)
[2021-11-17] MEDS: *HR* Enoxaparin 40 MG/0.4 ML SYRINGE SQ SCH (06:53)
[2021-11-17] MEDS: Budesonide/Formoterol 160/4.5 1 PUFF INH IH SCH ×2 (07:24→19:47)
[2021-11-17] MEDS: Chlorhexidine Rinse 15 ML MOUTHWASH MM SCH ×2 (10:10→22:09)
[2021-11-17] MEDS: Azithromycin 250 MG TABLET PO SCH (10:11)
[2021-11-17] MEDS: Cefepime HCl 2,000 MG in 0.9 % Sodium Chloride Mini Bag 100 ML IVPB SCH (10:11)
[2021-11-17] MEDS: Multivit/Ca/Min/Fe/FA 1 TAB TABLET PO SCH (10:11)
[2021-11-17] MEDS: Lactobacillus 1 EACH CAP.SPRINK PO SCH ×2 (10:11→20:07)
[2021-11-17] MEDS: Insulin LISPRO 300 UNITS/3 ML VIAL SUBQ SCH ×3 (10:14→17:38)
[2021-11-17] MEDS: Doxycycline 100 MG CAPSULE PO SCH (20:07)
[2021-11-17] MEDS: lisinopriL 10 MG TABLET PO SCH (20:07)
[2021-11-18] MEDS: MethylPREDNISolone 40 MG/ML VIAL IVP SCH ×3 (00:04→23:50)
[2021-11-18 01:26] LABS: Basophils % 0.1 %; Hematocrit 36.3 % (37.5-50.1); Hemoglobin 11.4 g/dL (12.9-16.9); Immature Granulocytes % 0.8 % (0-4); Lymphocytes # 0.6 K/mcL (0.6-4.6); Lymphocytes % 3.2 %; Mean Corpuscular HGB Conc 31.4 g/dL (31.6-35.5); Mean Corpuscular Hemoglobin 28.3 pg (28.0-33.3); Mean Corpuscular Volume 90.1 fL (83.0-100.0); Mean Platelet Volume 9.1 fL (9.4-12.4); Monocytes # 0.8 K/mcL (0.0-1.3); Neutrophils # 17.3 K/mcL (1.6-8.9); Platelet Count 548 K/mcL (140-400); Red Blood Count 4.03 M/mcL (4.19-5.50); Red Cell Distribution Width 14.3 % (11.5-14.5); Segmented Neutrophils % 91.9 %; White Blood Count 18.8 K/mcL (4.3-11.1)
[2021-11-18 01:44] LABS: BUN/Creatinine Ratio 29 (6-26); Blood Urea Nitrogen 31 mg/dL (8-23); Calcium 8.9 mg/dL (8.6-10.3); Carbon Dioxide 23 mEq/L (23-29); Chloride 102 mEq/L (98-107); Glucose 120 mg/dL (70-105); Osmolality,Calculated 278 (280-300); Phosphorous 3.1 mg/dL (2.7-4.5); Potassium 4.5 mEq/L (3.5-5.1); Sodium 130 mEq/L (136-145); eGFR For African Americans > 60 (> 60); eGFR For Non-African Americans > 60 (> 60)
[2021-11-18] MEDS: Ipratropium/Albuterol Neb 3 ML IH SCH ×5 (04:25→20:40)
[2021-11-18] MEDS: *HR* Enoxaparin 40 MG/0.4 ML SYRINGE SQ SCH (05:59)
[2021-11-18] MEDS: Budesonide/Formoterol 160/4.5 1 PUFF INH IH SCH ×2 (08:14→20:41)
[2021-11-18] MEDS: Doxycycline 100 MG CAPSULE PO SCH ×2 (08:17→21:38)
[2021-11-18] MEDS: Chlorhexidine Rinse 15 ML MOUTHWASH MM SCH ×2 (08:17→21:37)
[2021-11-18] MEDS: Lactobacillus 1 EACH CAP.SPRINK PO SCH ×2 (08:17→21:37)
[2021-11-18] MEDS: Multivit/Ca/Min/Fe/FA 1 TAB TABLET PO SCH (08:17)
[2021-11-18] MEDS: Insulin LISPRO 300 UNITS/3 ML VIAL SUBQ SCH ×3 (08:19→18:04)
[2021-11-18] MEDS: carvediloL 6.25 MG TABLET PO SCH (18:06)
[2021-11-18] MEDS: lisinopriL 10 MG TABLET PO SCH (21:37)
[2021-11-19] MEDS: Ipratropium/Albuterol Neb 3 ML IH SCH ×5 (00:43→15:28)
[2021-11-19 04:50] LABS: Basophils % 0.1 %; Hematocrit 35.2 % (37.5-50.1); Hemoglobin 11.4 g/dL (12.9-16.9); Immature Granulocytes % 1.3 % (0-4); Lymphocytes # 0.4 K/mcL (0.6-4.6); Lymphocytes % 2.9 %; Mean Corpuscular HGB Conc 32.4 g/dL (31.6-35.5); Mean Corpuscular Hemoglobin 29.1 pg (28.0-33.3); Mean Corpuscular Volume 89.8 fL (83.0-100.0); Mean Platelet Volume 8.9 fL (9.4-12.4); Monocytes # 0.3 K/mcL (0.0-1.3); Monocytes % 2.3 %; Neutrophils # 12.7 K/mcL (1.6-8.9); Platelet Count 470 K/mcL (140-400); Red Blood Count 3.92 M/mcL (4.19-5.50); Red Cell Distribution Width 14.2 % (11.5-14.5); Segmented Neutrophils % 93.4 %; White Blood Count 13.6 K/mcL (4.3-11.1)
[2021-11-19 05:07] LABS: BUN/Creatinine Ratio 36 (6-26); Blood Urea Nitrogen 32 mg/dL (8-23); Calcium 8.4 mg/dL (8.6-10.3); Carbon Dioxide 28 mEq/L (23-29); Chloride 102 mEq/L (98-107); Glucose 129 mg/dL (70-105); Magnesium 1.9 mg/dL (1.6-2.6); Osmolality,Calculated 281 (280-300); Potassium 4.6 mEq/L (3.5-5.1); Sodium 131 mEq/L (136-145); eGFR For African Americans > 60 (> 60); eGFR For Non-African Americans > 60 (> 60)
[2021-11-19 05:16] LABS: Thyroid Stimulating Hormone 0.586 mcIU/mL (0.340-5.600)
[2021-11-19] MEDS: *HR* Enoxaparin 40 MG/0.4 ML SYRINGE SQ SCH (06:06)
[2021-11-19] MEDS: Budesonide/Formoterol 160/4.5 1 PUFF INH IH SCH (07:46)
[2021-11-19] MEDS: Multivit/Ca/Min/Fe/FA 1 TAB TABLET PO SCH (07:48)
[2021-11-19] MEDS: Doxycycline 100 MG CAPSULE PO SCH (07:48)
[2021-11-19] MEDS: Lactobacillus 1 EACH CAP.SPRINK PO SCH (07:49)
[2021-11-19] MEDS: Chlorhexidine Rinse 15 ML MOUTHWASH MM SCH (07:49)
[2021-11-19] MEDS: Insulin LISPRO 300 UNITS/3 ML VIAL SUBQ SCH ×2 (07:49→14:07)
[2021-11-19] MEDS: carvediloL 6.25 MG TABLET PO SCH (07:49)
[2021-11-19] MEDS ORDERED: Cholecalciferol (D-3) 1,000 UNIT (25MCG) TABLET PO SCH (09:00)
[2021-11-19] MEDS ORDERED: Vitamin E 200 UNIT (90MG) CAPSULE PO SCH (09:00)
[2021-11-19] MEDS ORDERED: Ascorbic Acid 500 MG TABLET PO SCH (09:00)
[2021-11-19] MEDS ORDERED: Cyanocobalamin (B-12) 1,000 MCG TABLET PO SCH (09:00)
[2021-11-19] MEDS ORDERED: Folic Acid 1 MG TABLET PO SCH (09:00)
[2021-11-19] MEDS: MethylPREDNISolone 40 MG/ML VIAL IVP SCH (14:07)
[2021-11-19 14:51] LABS: A.galactomannan Ag Index 0.08
[2021-11-19 15:56] VITALS: BP 148/75; PULSE 83; TEMP 98.4; O2SAT 98
== END 2021-11-19 18:27 | disposition home health service (06) | DRG 871 ==
LOC: SUATTDRO → 4WAOSI 17:41 → EMEROOARM 17:41 → SUATTDRO 22:07 → 4WAOSI 22:50
PROVIDERS: ADMIT Internal Medicine; ATTEND Pharmacist

== ENCOUNTER 2022-01-15 11:32 | Inpatient (IN) ==
[2022-01-15 12:12] LABS: Basophils # 0.1 K/mcL (0.0-0.2); Basophils % 0.6 %; Eosinophils # 0.2 K/mcL (0.0-0.6); Eosinophils % 1.6 %; Hematocrit 41.5 % (37.5-50.1); Immature Granulocytes % 0.4 % (0-4); Lymphocytes # 0.9 K/mcL (0.6-4.6); Lymphocytes % 7.8 %; Mean Corpuscular HGB Conc 31.3 g/dL (31.6-35.5); Mean Corpuscular Volume 89.4 fL (83.0-100.0); Monocytes # 1.4 K/mcL (0.0-1.3); Monocytes % 11.3 %; Neutrophils # 9.3 K/mcL (1.6-8.9); Platelet Count 511 K/mcL (140-400); Red Blood Count 4.64 M/mcL (4.19-5.50); Red Cell Distribution Width 14.9 % (11.5-14.5); Segmented Neutrophils % 78.3 %; White Blood Count 11.9 K/mcL (4.3-11.1)
[2022-01-15 12:21] LABS: INR 1.1; Prothrombin Time 12.7 Seconds (9.4-12.1)
[2022-01-15 12:23] LABS: Activated Partial Thrombo Time 35.9 Seconds (26.0-36.0)
[2022-01-15 12:26] LABS: Alanine Aminotransferase 13 Units/L (7-52); Albumin 3.6 g/dL (3.5-5.7); Albumin/Globulin Ratio 0.9 (1.1-2.2); Alkaline Phosphatase 144 Units/L (34-104); Aspartate Amino Transferase 15 Units/L (13-39); BUN/Creatinine Ratio 14 (6-26); Bilirubin,Total 0.5 mg/dL (0.3-1.0); Blood Urea Nitrogen 14 mg/dL (8-23); Calcium 9.2 mg/dL (8.6-10.3); Carbon Dioxide 26 mEq/L (23-29); Chloride 100 mEq/L (98-107); Globulin 3.9 g/dL (2.4-3.5); Glucose 150 mg/dL (70-105); Osmolality,Calculated 283 (280-300); Potassium 3.6 mEq/L (3.5-5.1); Sodium 135 mEq/L (136-145); Total Protein 7.5 g/dL (6.4-8.9); Troponin I < 0.03 ng/mL (< 0.04); eGFR For African Americans > 60 (> 60); eGFR For Non-African Americans > 60 (> 60)
[2022-01-15] MEDS ORDERED: Ondansetron 4 MG/2 ML VIAL IVP PRN (18:05)
[2022-01-15] MEDS ORDERED: Acetaminophen 325 MG TABLET PO PRN (18:05)
[2022-01-15] MEDS ORDERED: Naloxone 0.4 MG/ML INJ IVP PRN (18:05)
[2022-01-15] MEDS ORDERED: Perflutren Lipid Microsphere 1.3 ML in 0.9 % Sodium Chloride 8.7 ML IVP PRN (18:08)
[2022-01-15] MEDS ORDERED: Aspirin Enteric Coated 325 MG Tablet PO ONE (18:08)
[2022-01-15] MEDS: lisinopriL 10 MG TABLET PO SCH (19:51)
[2022-01-15] MEDS: Famotidine 20 MG TABLET PO SCH (19:51)
[2022-01-15] MEDS ORDERED: Albuterol 2.5 MG/3 ML NEBULIZER IH SCH (22:00)
[2022-01-15] MEDS: Levalbuterol Neb 1.25 MG/3 ML IH SCH (23:39)
[2022-01-16 01:43] LABS: Hematocrit 35.3 % (37.5-50.1); Hemoglobin 11.6 g/dL (12.9-16.9); Mean Corpuscular HGB Conc 32.9 g/dL (31.6-35.5); Mean Corpuscular Hemoglobin 28.9 pg (28.0-33.3); Mean Corpuscular Volume 87.8 fL (83.0-100.0); Mean Platelet Volume 9.2 fL (9.4-12.4); Platelet Count 454 K/mcL (140-400); Red Blood Count 4.02 M/mcL (4.19-5.50); Red Cell Distribution Width 14.7 % (11.5-14.5); White Blood Count 8.6 K/mcL (4.3-11.1)
[2022-01-16 01:56] LABS: Estimated Average Glucose 126 mg/dl
[2022-01-16 02:03] LABS: BUN/Creatinine Ratio 15 (6-26); Blood Urea Nitrogen 15 mg/dL (8-23); Calcium 8.5 mg/dL (8.6-10.3); Carbon Dioxide 25 mEq/L (23-29); Chloride 100 mEq/L (98-107); Chol/HDL Ratio 2.1 (0-4.9); Cholesterol 135 mg/dL (< 200); Glucose 186 mg/dL (70-105); HDL Cholesterol 65 mg/dL (40-59); LDL Cholesterol,Calculated 57 mg/dL (< 100); Magnesium 1.9 mg/dL (1.6-2.6); Osmolality,Calculated 282 (280-300); Phosphorous 2.1 mg/dL (2.7-4.5); Potassium 3.6 mEq/L (3.5-5.1); Sodium 133 mEq/L (136-145); Triglycerides 65 mg/dL (< 150); eGFR For African Americans > 60 (> 60); eGFR For Non-African Americans > 60 (> 60)
[2022-01-16] MEDS: Levalbuterol Neb 1.25 MG/3 ML IH SCH ×4 (04:26→20:23)
[2022-01-16] MEDS: Cyanocobalamin (B-12) 1,000 MCG TABLET PO SCH (08:26)
[2022-01-16] MEDS: Folic Acid 1 MG TABLET PO SCH (08:26)
[2022-01-16] MEDS: Cholecalciferol (D-3) 1,000 UNIT (25MCG) TABLET PO SCH (08:26)
[2022-01-16] MEDS: Ascorbic Acid 500 MG TABLET PO SCH (08:26)
[2022-01-16] MEDS: *HR* Enoxaparin 40 MG/0.4 ML SYRINGE SQ SCH (08:26)
[2022-01-16] MEDS: Aspirin Enteric Coated 81 MG Tablet PO SCH (08:26)
[2022-01-16] MEDS: Vitamin E 200 UNIT (90MG) CAPSULE PO SCH (08:26)
[2022-01-16] MEDS: predniSONE 20 MG TABLET PO SCH (08:26)
[2022-01-16] MEDS: Famotidine 20 MG TABLET PO SCH ×2 (08:26→20:28)
[2022-01-16] MEDS ORDERED: NON-FORMULARY MEDICATION 1 EACH EACH (Omega-3/Dha/Epa/Fish Oil [Fish Oil 1,000 Mg Softgel] PO SCH (09:00)
[2022-01-16] MEDS ORDERED: REVEFENACIN 175 MCG/3 ML IH SCH (09:00)
[2022-01-16 12:35] LABS: Bacteria,Urine Few per hpf (None-Few); Bilirubin,Urine Negative (Negative); Blood,Urine Negative (Negative); Clarity,Urine Clear (Clear); Color,Urine Light-Yellow (Yellow); Glucose,Urine (UA) 50 mg/dL (Normal); Ketones,Urine Negative (Negative); Leukocyte Esterase,Urine Negative (Negative); Mucus,Urine Few per lpf (None-Few); Nitrite,Urine Negative (Negative); Protein,Urine Trace mg/dL (Neg-Trace); Specific Gravity,Urine 1.017 (1.010-1.025); Squamous Epithelial Cell,Urine Few per hpf (None-Few); Urobilinogen,Urine Normal (Normal); WBC,Urine 0-3 per hpf (0-3)
[2022-01-16] MEDS: lisinopriL 10 MG TABLET PO SCH (20:28)
[2022-01-16] MEDS ORDERED: *HR* Metoprolol 5 MG/5 ML VIAL IVP ONE (22:31)
[2022-01-17] MEDS: Levalbuterol Neb 1.25 MG/3 ML IH SCH (04:13)
[2022-01-17] MEDS ORDERED: Famotidine 20 MG/2 ML VIAL IVP ONE (04:47)
[2022-01-17] MEDS: *HR* Enoxaparin 40 MG/0.4 ML SYRINGE SQ SCH (05:28)
[2022-01-17 08:14] VITALS: BP 163/78; PULSE 99; TEMP 97.6; O2SAT 100
[2022-01-17] MEDS: Cyanocobalamin (B-12) 1,000 MCG TABLET PO SCH (09:31)
[2022-01-17] MEDS: Famotidine 20 MG TABLET PO SCH (09:31)
[2022-01-17] MEDS: predniSONE 20 MG TABLET PO SCH (09:31)
[2022-01-17] MEDS: Aspirin Enteric Coated 81 MG Tablet PO SCH (09:31)
[2022-01-17] MEDS: Vitamin E 200 UNIT (90MG) CAPSULE PO SCH (09:31)
[2022-01-17] MEDS: Cholecalciferol (D-3) 1,000 UNIT (25MCG) TABLET PO SCH (09:31)
[2022-01-17] MEDS: Folic Acid 1 MG TABLET PO SCH (09:31)
[2022-01-17] MEDS: Ascorbic Acid 500 MG TABLET PO SCH (09:31)
== END 2022-01-17 10:42 | disposition home or self-care (01) | DRG 69 ==
LOC: 3BNU 11:32 → EMEROOARM 11:32 → SUATTDRO 18:37 → 3BNU 18:55
PROVIDERS: ADMIT Student in an Organized Health Care Education/Training Program; ATTEND Internal Medicine